=== PATIENT | male | born 1970 | race Hispanic/Latino ===

== ENCOUNTER 2021-05-12 13:05 | Emergency (ER) | payer MEDICARE, OTHER ==
[2021-05-12] MEDS ORDERED: Dexamethasone 10 MG/ML VIAL ONE (14:10)
[2021-05-12] MEDS ORDERED: Ketorolac Tromethamine 30 MG/ML VIAL ONE (14:11)
== END 2021-05-12 14:08 | disposition home or self-care (01) ==
LOC: CSHERS 13:05
DX: J02.9 Acute pharyngitis, unspecified (principal); I10 Essential (primary) hypertension; E11.9 Type 2 diabetes mellitus without complications; J44.9 Chronic obstructive pulmonary disease, unspecified
CPT/HCPCS: 96372; 99283; J1100; J1885

== ENCOUNTER 2022-01-28 11:33 | Emergency (ER) | payer OTHER ==
[2022-01-28] MEDS ORDERED: Albuterol Sulfate 2.5 mg/3 ml Neb ONE (12:33)
[2022-01-28 12:36] LABS: #Monocytes 1.3 10x3/uL (0.0-1.1); #Neutrophils 8.7 10x3/uL (1.5-8.4); %Basophils 0.3 % (0.0-2.0); %Eosinophils 0.2 % (0.0-6.0); %Lymphocytes 9.7 % (18.0-47.0); %Monocytes 11.7 % (0.0-10.0); %Neutrophils 77.8 % (40.0-75.0); Hemoglobin 16.6 g/dL (13.5-17.5); Mean Corpuscular HGB CONC 33.9 g/dL (32.0-36.0); Mean Corpuscular Hemoglobin 29.1 pg (27.0-33.0); Mean Corpuscular Volume 85.6 fl (81.2-95.1); Mean Platelet Volume 11.1 fl (7.4-10.4); Platelet Count 191 10x3/uL (150-450); RBC Distribution Width 13.4 % (11.5-14.5); Red Blood Cell (RBC) Count 5.71 10x6/uL (4.32-5.72); White Blood Cell (WBC) Count 11.2 10x3/uL (3.5-10.5)
[2022-01-28 12:49] LABS: ALT (SGPT) 39 U/L (8-55); AST (SGOT) 23 U/L (5-34); Albumin 4.4 g/dL (3.5-5.0); Alkaline Phosphatase 92 U/L (40-110); Anion Gap 14 mmol/L (10-20); BUN (Urea Nitrogen) 12 mg/dL (8.9-20.6); Bilirubin, Total 1.5 mg/dL (0.2-1.2); CK (CPK) 278 U/L (30-200); Calc. Creatinine Clearance 0 mL/min (70-130); Calcium 9.4 mg/dL (7.8-10.44); Carbon Dioxide 27 mmol/L (22-29); Chloride 100 mmol/L (98-107); Estimated GFR 98; Globulin 2.6 g/dL (2.4-3.5); Glucose 277 mg/dL (70-105); Lipase 16 U/L (8-78); Potassium 4.2 mmol/L (3.5-5.1); Sodium 137 mmol/L (136-145)
[2022-01-28] MEDS ORDERED: Dexamethasone 10 MG/ML VIAL ONE (13:01)
[2022-01-28] MEDS ORDERED: Magnesium 2 GM/50 ML BAG (IN WATER) ONE (13:02)
[2022-01-28 13:45] LABS: SARS-CoV-2 NAA Rapid Test DETECTED (NotDetected)
== END 2022-01-28 14:02 | disposition home or self-care (01) ==
LOC: CSHERS 11:33
DX: U07.1 COVID-19 (principal); J44.9 Chronic obstructive pulmonary disease, unspecified; I11.0 Hypertensive heart disease with heart failure; I50.9 Heart failure, unspecified; E11.9 Type 2 diabetes mellitus without complications
CPT/HCPCS: 71045; 80053; 82550; 83690; 83880; 84484; 85025; 93005; 94644; 96365; 96375; 99285; U0002; J1100; J3475; J7611; J7620

== ENCOUNTER 2022-09-05 23:17 | Emergency (ER) | payer OTHER ==
[2022-09-06] MEDS ORDERED: Ipratropium/Albuterol 3 ML NEB ONE (00:03)
[2022-09-06 00:16] LABS: #Basophils 0.1 10x3/uL (0.0-0.2); #Eosinphils 0.1 10x3/uL (0.0-0.5); #Monocytes 1.1 10x3/uL (0.0-1.1); #Neutrophils 8.9 10x3/uL (1.5-8.4); %Basophils 0.4 % (0.0-2.0); %Lymphocytes 21.9 % (18.0-47.0); %Monocytes 8.5 % (0.0-10.0); %Neutrophils 67.8 % (40.0-75.0); Hemoglobin 16.6 g/dL (13.5-17.5); Mean Corpuscular HGB CONC 34.7 g/dL (32.0-36.0); Mean Corpuscular Hemoglobin 29.2 pg (27.0-33.0); Mean Corpuscular Volume 84.2 fl (81.2-95.1); Mean Platelet Volume 11.2 fl (7.4-10.4); Platelet Count 209 10x3/uL (150-450); RBC Distribution Width 12.1 % (11.5-14.5); Red Blood Cell (RBC) Count 5.68 10x6/uL (4.32-5.72); White Blood Cell (WBC) Count 13.1 10x3/uL (3.5-10.5)
[2022-09-06 00:24] LABS: ALT (SGPT) 19 U/L (8-55); AST (SGOT) 14 U/L (5-34); Albumin 4.1 g/dL (3.5-5.0); Alkaline Phosphatase 120 U/L (40-110); Anion Gap 19 mmol/L (10-20); BUN (Urea Nitrogen) 10 mg/dL (8.4-25.7); Bilirubin, Total 1.1 mg/dL (0.2-1.2); Calc. Creatinine Clearance 0 mL/min (70-130); Calcium 9.7 mg/dL (7.8-10.44); Carbon Dioxide 21 mmol/L (22-29); Chloride 97 mmol/L (98-107); Estimated GFR 104; Globulin 3.1 g/dL (2.4-3.5); Potassium 4.3 mmol/L (3.5-5.1); Protein, Total 7.2 g/dL (6.0-8.3); Sodium 133 mmol/L (136-145)
[2022-09-06 00:49] LABS: SARS-CoV-2 NAA Rapid Test Not Detected (NotDetected)
[2022-09-06 01:08] LABS: Glucose 427 mg/dL (70-105)
[2022-09-06] MEDS ORDERED: Insulin Regular 300 UNITS/3 ML VIAL ONE (01:23)
== END 2022-09-06 02:17 | disposition home or self-care (01) ==
LOC: CSHERS 23:17
DX: E11.65 Type 2 diabetes mellitus with hyperglycemia (principal); B34.9 Viral infection, unspecified; D72.829 Elevated white blood cell count, unspecified; I11.0 Hypertensive heart disease with heart failure; I50.9 Heart failure, unspecified; J44.9 Chronic obstructive pulmonary disease, unspecified; Z79.899 Other long term (current) drug therapy; Z79.4 Long term (current) use of insulin
CPT/HCPCS: 0240U; 71045; 80053; 82962; 85025; 93005; 94760; 36416; 96361; 96374; J1815; J7620

== ENCOUNTER 2023-05-23 11:16 | Emergency (ER) | payer OTHER ==
[2023-05-23 12:16] LABS: #Basophils 0.1 10x3/uL (0.0-0.2); #Eosinphils 0.2 10x3/uL (0.0-0.5); #Monocytes 0.9 10x3/uL (0.0-1.1); #Neutrophils 6.8 10x3/uL (1.5-8.4); %Basophils 0.5 % (0.0-2.0); %Eosinophils 1.7 % (0.0-6.0); %Lymphocytes 22.4 % (18.0-47.0); %Monocytes 8.7 % (0.0-10.0); %Neutrophils 66.2 % (40.0-75.0); Hemoglobin 15.1 g/dL (13.5-17.5); Mean Corpuscular Hemoglobin 30.4 pg (27.0-33.0); Mean Corpuscular Volume 84.5 fl (81.2-95.1); Mean Platelet Volume 11.3 fl (7.4-10.4); Platelet Count 231 10x3/uL (150-450); RBC Distribution Width 12.1 % (11.5-14.5); Red Blood Cell (RBC) Count 4.97 10x6/uL (4.32-5.72); White Blood Cell (WBC) Count 10.3 10x3/uL (3.5-10.5)
[2023-05-23 12:51] LABS: ALT (SGPT) 31 U/L (8-55); AST (SGOT) 16 U/L (5-34); Albumin 4.4 g/dL (3.5-5.0); Alkaline Phosphatase 111 U/L (40-110); Anion Gap 17 mmol/L (10-20); BUN (Urea Nitrogen) 16 mg/dL (8.4-25.7); Calc. Creatinine Clearance 0 mL/min (70-130); Calcium 9.4 mg/dL (7.8-10.44); Carbon Dioxide 24 mmol/L (22-29); Chloride 97 mmol/L (98-107); Estimated GFR 103; Globulin 2.8 g/dL (2.4-3.5); Potassium 4.3 mmol/L (3.5-5.1); Protein, Total 7.2 g/dL (6.0-8.3); Sodium 134 mmol/L (136-145)
[2023-05-23 12:57] LABS: Troponin I Less than 0.010 ng/mL (< 0.028)
[2023-05-23 13:17] LABS: Glucose 405 mg/dL (70-105)
== END 2023-05-23 16:28 | disposition home or self-care (01) ==
LOC: CSHERS 11:16
DX: R07.89 Other chest pain (principal); J44.9 Chronic obstructive pulmonary disease, unspecified; E11.9 Type 2 diabetes mellitus without complications; I10 Essential (primary) hypertension
CPT/HCPCS: 36416; 71045; 80053; 84484; 85025; 93005; 96360; 96361

== ENCOUNTER 2023-06-24 10:21 | Emergency (ER) | payer OTHER ==
[2023-06-24] MEDS ORDERED: Ipratropium/Albuterol 3 ML NEB ONE (11:25)
[2023-06-24 12:17] LABS: SARS-CoV-2 NAA Rapid Test Not Detected (NotDetected)
[2023-06-24] MEDS ORDERED: Ketorolac Tromethamine 30 MG (1 mL) VIAL ONE (12:44)
[2023-06-24] MEDS ORDERED: methylPREDNISolone Sod Succ/PF 125 MG/2 ML VIAL ONE (12:44)
== END 2023-06-24 13:56 | disposition home or self-care (01) ==
LOC: CSHERS 10:21
DX: B34.9 Viral infection, unspecified (principal); J44.1 Chronic obstructive pulmonary disease with (acute) exacerbation; I10 Essential (primary) hypertension; E11.9 Type 2 diabetes mellitus without complications
CPT/HCPCS: 0240U; 71045; 96361; 96374; 96375; J1885; J2930; J7620

== ENCOUNTER 2024-06-02 05:29 | Emergency (ER) | payer OTHER | END 2024-06-02 05:59 | disposition home or self-care (01) | LOC: CSHERS 05:29 | DX: J44.1 Chronic obstructive pulmonary disease with (acute) exacerbation (principal); J98.8 Other specified respiratory disorders; E11.9 Type 2 diabetes mellitus without complications; I10 Essential (primary) hypertension; J44.9 Chronic obstructive pulmonary disease, unspecified; E78.5 Hyperlipidemia, unspecified; Z79.899 Other long term (current) drug therapy | CPT/HCPCS: 99283 ==